=== PATIENT | male | born 1960 | race Caucasian/White ===

== ENCOUNTER 2016-12-20 11:01 | Emergency (ER) | payer BC, OTHER ==
[2016-12-20 11:06] VITALS: BMI 22.1
[2016-12-20] MEDS ORDERED: SODIUM CHLORIDE 1,000 ML IV STA (11:23)
[2016-12-20] MEDS ORDERED: ACETAMINOPHEN 1000 MG/100 ML VIAL (NON FORMULARY) IVPB ONE (11:26)
--- NOTE | 2016-12-20 11:27 | PDOC ---
History of Present Illness - General History Source: Patient Exam Limitations: No Limitations - History of Present Illness Initial Comments: 12/20/16 12:18 Patient is a 56 year old male with a significant past medical history of throat cancer (completed radiation in remission) who presents to the ED with chills, cough, sore throat, body aches, and fever since yesterday. Patient notes that he developed a cough and sore throat 2 days ago. He reports dry nonproductive cough, chills and feeling hot. Patient also reports intermittent stuffy nose and nausea. He states that he has been taking advil for the symptoms with mild releif. No recent travel or known sick contacts. Pt denies any cp, abd pain, diarrhea, dysuria. <Nkechi Pineda - Last Filed: 12/20/16 12:18> <Sanjay Vidal - Last Filed: 12/20/16 16:17> - General Chief Complaint: Respiratory Stated Complaint: COUGH, COLD, Tachycardia Time Seen by Provider: 12/20/16 11:23 Past History <Nkechi Pineda - Last Filed: 12/20/16 12:18> - Past Medical History Cancer: Yes (throat) - Surgical History Orthopedic Surgery: No (pigeon chest) - Psycho/Social/Smoking Cessation Hx Suicidal Ideation: No Smoking Status: No Smoking History: Former smoker Have you smoked in the past 12 months: No Number of Cigarettes Smoked Daily: 0 If you are a former smoker, when did you quit?: 2001 Information on smoking cessation initiated: No Hx Alcohol Use: No Drug/Substance Use Hx: No Substance Use Type: None Hx Substance Use Treatment: No <Sanjay Vidal - Last Filed: 12/20/16 16:17> - Past Medical History Allergies/Adverse Reactions: Allergies Allergy/AdvReac Type Severity Reaction Status Date / Time No Known Drug Allergies Allergy Verified 12/20/16 11:06 Home Medications: Ambulatory Orders Azithromycin [Zithromax -] 250 mg PO DAILY #6 tab 12/20/16 Review of Systems - Review of Systems Able to Perform ROS?: Yes Comments:: 12/20/16 12:19 CONSTITUTIONAL: Reported: fever, chills, diffuse body aches No reported: Diaphoresis, Generalized Weakness, Malaise, Loss of Appetite HEENT: Reported: nasal congestion, sore throat No reported: Rhinorrhea,Throat Swelling, Difficulty Swallowing, Mouth Swelling, Ear Pain, Eye Pain, Visual Changes CARDIOVASCULAR: No reported: Chest Pain, Syncope, Palpitations, Irregular Heart Rate, Lightheadedness, Peripheral Edema RESPIRATORY: Reported: cough No reported: Shortness of Breath, SOB with Exertion, Orthopnea, Wheezing, Stridor, Hemoptysis GASTROINTESTINAL: No reported: Abdominal pain, Abdominal Distension, Nausea, Vomiting, Diarrhea, Constipation, Melena, Hematochezia GENITOURINARY: No reported: Dysuria, Frequency, Urgency, Hesitancy, Flank Pain, Genital Pain MUSCULOSKELETAL: No reported: Myalgia, Arthralgia, Joint Swelling, Back pain, Neck Pain SKIN: No reported: Rash, Itching, Pallor HEMATOLOGIC/IMMUNOLOGIC: No reported: Easy Bleeding, Easy Bruising, Lymphadenopathy, Frequent infections ENDOCRINE: No reported: Unexplained Weight Gain, Unexplained Weight Loss, Heat Intolerance , Cold Intolerance NEUROLOGIC: No reported: Headache, Focal Weakness, Paresthesias, Vertigo, Lightheadedness, Unsteady Gait, Seizure, Mental Status Changes, Incontinence PSYCHIATRIC: No reported: Anxiety, Depression <Nkechi Pineda - Last Filed: 12/20/16 12:18> *Physical Exam - Vital Signs Last Vital Signs Temp Pulse Resp BP Pulse Ox 102.6 F H 143 H 19 135/95 95 12/20/16 11:04 12/20/16 11:04 12/20/16 11:04 12/20/16 11:04 12/20/16 11:04 - Physical Exam Comments: 12/20/16 12:19 GENERAL: The patient is awake, alert, and fully oriented, Nontoxic - in no acute distress. HEAD: Normocephalic, atraumatic. EYES: extraocular movements intact, sclera anicteric, conjunctiva clear. ENT: Normal voice, Moist mucous membranes. Nonerythematous, no exudates NECK: Normal range of motion, supple LUNGS: Breath sounds equal, clear to auscultation bilaterally. No wheezes, no rhonchi, no rales. HEART: +Tachycardic, without murmur, rub or gallop. ABDOMEN: Soft, nontender, normoactive bowel sounds. No guarding, no rebound.No CVA tenderness EXTREMITIES: Normal range of motion, no edema. No clubbing or cyanosis. No cords , erythema, or tenderness. NEUROLOGICAL: No facial assymetry, Normal speech, PSYCH: Normal mood, normal affect. SKIN: hot to the touch, Dry, normal turgor, <Nkechi Pineda - Last Filed: 12/20/16 12:18> - Vital Signs Last Vital Signs Temp Pulse Resp BP Pulse Ox 102.6 F H 143 H 19 135/95 95 12/20/16 11:04 12/20/16 11:04 12/20/16 11:04 12/20/16 11:04 12/20/16 11:04 <Sanjay Vidal - Last Filed: 12/20/16 16:17> Heart Score/ECG Review - ECG Impressions Comment:: 12/20/16 11:37 Twelve-lead EKG was performed and reviewed by me. There is normal sinus rhythm with a rate of 125 The axis is normal. The intervals are normal. There is normal R wave progression There are no ST or T wave abnormalities. Impression: sinus tachycardia <Sanjay Vidal - Last Filed: 12/20/16 16:17> ED Treatment Course - LABORATORY CBC & Chemistry Diagram: 12/20/16 11:30 12/20/16 11:30 - ADDITIONAL ORDERS Additional order review: 12/20/16 11:30 RBC 5.90 H MCV 79.6 L MCHC 32.3 RDW 15.6 MPV 8.3 Neutrophils % 83.6 H Lymphocytes % 5.0 L D Monocytes % 4.9 Eosinophils % 6.2 H Basophils % 0.3 <Nkechi Pineda - Last Filed: 12/20/16 12:18> - LABORATORY CBC & Chemistry Diagram: 12/20/16 11:30 12/20/16 11:30 - RADIOLOGY Radiology Studies Ordered: Category Date Time Status CHEST X-RAY PORTABLE* [RAD] Stat Radiology 12/20/16 11:23 Ordered <Sanjay Vidal - Last Filed: 12/20/16 16:17> Medical Decision Making - Medical Decision Making 12/20/16 11:35 56y M hx of throat CA (s/p radiation therapy 5 yrs ago, with resolution), presents with body aches, non productive cough, nasal congestion x 1 day. The pts vitals noted for fever/tachcyardia. exam otherwise unremarkable and pt is well appearing suspect influenza will ck xray to r/o pna, sepsis orderset obtained will give fluids, iv tylenol will reassess A portion of this note was documented by scribe services under my direction. I have reviewed the details of the note, within reason, and agree with the documentation with the following case summary and management plan written by me 12/20/16 13:48 labs reviewed noted for leukocytosis to 17 with left shift ua neg for UTI cxr negative for pna flu and strep negative suspect likely viral syndrome with congestion/cough/body aches glendy recommend supportive care at home. pts vitals still shows fever with tacycardia - improved will give him toradol for fever control 12/20/16 16:16 pts feels improved pts HR and fever resolved, states he feals great and wants to go home the pts BP is a bit lower than prior to arrival, but pt was able to ambulate around the ED without any sypmtoms icluding any dizziness. will dc the pt with pmd fu on thursday will give pt course of zithromax strict reutnr precautions were discussed I discussed the physical exam findings, ancillary test results and final diagnoses with the patient. I answered all of the patient's questions. The patient was satisfied with the care received and felt comfortable with the discharge plan and treatment plan. The patient will call their primary care physician within 24 hours to arrange follow-up and will return to the Emergency Department with any new, persistent or worsening symptoms. <Sanjay Vidal - Last Filed: 12/20/16 16:17> *DC/Admit/Observation/Transfer - Attestations Scribe Attestion: 12/20/16 11:40 Documentation prepared by ARAVIND Small, acting as medical insurance claims processor for Sanjay Vidal MD. <Nkechi Pineda - Last Filed: 12/20/16 12:18> - Discharge Dispostion Admit: No <Sanjay Vidal - Last Filed: 12/20/16 16:17> Diagnosis at time of Disposition: Bronchitis, acute - Discharge Dispostion Disposition: HOME Condition at time of disposition: Improved - Referrals Referrals: Sincere Sanchez MD [Primary Care Provider] - - Patient Instructions Printed Discharge Instructions: DI for Viral Upper Respiratory Infection -- Adult, DI for Acute Bronchitis Additional Instructions: Return to the emergency department immediately with ANY new, persistent or worsening symptoms including any shortness of breath, chest pain, dizziness, abominal pain, nausea/vomiting, or any other concerns. You MUST call and follow up with your doctor tomorrow for further evaluation of your symptoms. Results were discussed with you. Please make sure your doctor reviews the results of your emergency evaluation. If you had any xrays during your visit, it was read preliminarily by myself, a Radiologist will review it and if there are any additional findings we will call you. Print Language: NEPALI
[2016-12-20] MEDS ORDERED: ACETAMINOPHEN INJECTION 100 ML IVPB ONE (11:34)
[2016-12-20 11:36] LABS: BASOPHIL 0.3 % (0-2.0); EOSINOPHIL 6.2 % (0-4.5); MCH 25.7 pg (25.7-33.7); MCHC 32.3 g/dl (32.0-35.9); MEAN CELL VOLUME 79.6 fl (80-96); MEAN PLT VOLUME 8.3 fl (7.5-11.1); NEUTROPHILS 83.6 % (42.8-82.8); PLATELET COUNT 312 K/MM3 (134-434); RDW 15.6 % (11.9-15.9); WHITE BLOOD COUNT 17.3 K/mm3 (4.0-10.0)
[2016-12-20 11:48] LABS: INR 1.04 (0.82-1.09); PROTHROMBIN TIME (PATIENT) 11.5 SEC (9.98-11.88)
[2016-12-20 11:51] LABS: ACTIVATED PTT 30.4 SECONDS (26.9-34.4)
[2016-12-20 12:00] LABS: ALBUMIN 4.2 g/dl (3.4-5.0); ANION GAP 9 (8-16); BILIRUBIN,TOTAL 0.8 mg/dL (0.2-1.0); CO2 29 mmol/L (21-32); COCKROFT - GAULT 86.09; CREATININE 0.9 mg/dL (0.7-1.3); GLUCOSE,RANDOM 105 mg/dL (74-106); SGOT/AST 17 U/L (15-37); SGPT/ALT 20 U/L (12-78); TOT PROT 8.3 g/dl (6.4-8.2)
[2016-12-20 12:00] LABS: URINE APPEARANCE CLEAR; URINE BILIRUBIN NEGATIVE (NEGATIVE); URINE COLOR LTYELLOW; URINE GLUCOSE (UA) NEGATIVE (NEGATIVE); URINE KETONE NEGATIVE (NEGATIVE); URINE LEUK ESTERASE NEGATIVE (NEGATIVE); URINE NITRITE NEGATIVE (NEGATIVE); URINE PROTEIN NEGATIVE (NEGATIVE); URINE UROBILINOGEN NEGATIVE E.U./dl (0.2-1.0)
[2016-12-20 12:01] LABS: URINE BLOOD 1+ (NEGATIVE)
[2016-12-20 12:02] LABS: URINE MUCUS RARE; URINE RBC 1 /hpf (0-3)
[2016-12-20 12:02] LABS: VENOUS BLOOD GAS HCO3 29.6 meq/L (19-25); VENOUS PH 7.35 (7.32-7.42)
[2016-12-20 12:03] LABS: ALK PHOS 79 U/L (45-117); TROPONIN I < 0.02 ng/ml (0.00-0.05)
[2016-12-20] MEDS ORDERED: KETOROLAC TROMETHAMINE 30 MG/1 ML VIAL IVPUSH ONE (13:49)
[2016-12-20] MEDS ORDERED: SODIUM CHLORIDE 1,000 ML IV ONE (13:49)
[2016-12-20] MEDS ORDERED: KETOROLAC TROMETHAMINE 30 MG/1 ML VIAL ONE (13:58)
[2016-12-20 15:26] VITALS: BP 95/68; PULSE 91; TEMP 98
--- NOTE | 2016-12-21 12:32 | EKG ---
Test Reason : Blood Pressure : / mmHG Vent. Rate : 125 BPM Atrial Rate : 125 BPM P-R Int : 116 ms QRS Dur : 074 ms QT Int : 306 ms P-R-T Axes : 079 050 070 degrees QTc Int : 441 ms SINUS TACHYCARDIA NONSPECIFIC ST ABNORMALITY Confirmed by KIM GRALAND MD ([id number]) on 12/21/2016 12:32:34 PM Referred By: Confirmed By:KIM GARLAND MD
== END 2016-12-20 16:26 | disposition home or self-care (01) ==
LOC: JER 11:01
PROC: 3E033NZ Introduction of Analgesics, Hypnotics, Sedatives into Peripheral Vein, Percutaneous Approach (ICD-10-PCS; principal; 2016-12-20)
PROC: 3E0333Z Introduction of Anti-inflammatory into Peripheral Vein, Percutaneous Approach (ICD-10-PCS; 2016-12-20)
DX: J20.9 Acute bronchitis, unspecified (principal); Z85.819 Personal history of malignant neoplasm of unspecified site of lip, oral cavity, and pharynx
CPT/HCPCS: 36415; 71010-TC; 80053; 81003; 81015; 82550; 82803; 83605; 84484; 85025; 85610; 85730; 86850; 86900; 86901; 87040; 87070; 87086; 87430; 87804; 93005; 93010; 99285-25

== ENCOUNTER 2021-03-12 06:35 | Observation (INO) | payer BC, OTHER ==
[2021-03-12] MEDS ORDERED: ACETAMINOPHEN 325 MG TABLET (FP) PO ONE (07:35)
[2021-03-12] MEDS ORDERED: ACETAMINOPHEN 325 MG TABLET (FP) ONE (07:45)
[2021-03-12 08:06] LABS: BASO % 1.2 % (0-2.0); EOS % 6.2 % (0-4.5); HEMATOCRIT 45.7 % (35.4-49); HEMOGLOBIN 15.1 GM/dL (11.7-16.9); LYMPH % 11.5 % (8-40); MCH 26.4 pg (25.7-33.7); MCHC 33.1 g/dl (32.0-35.9); MEAN CELL VOLUME 79.8 fl (80-96); MONO % 6.6 % (3.8-10.2); NEUT % 74.5 % (42.8-82.8); PLATELET COUNT 328 10^3/uL (134-434); RBC 5.73 M/mm3 (4.00-5.60); RDW 15.5 % (11.9-15.9); WHITE BLOOD COUNT 7.8 K/mm3 (4.0-10.0)
[2021-03-12 08:24] LABS: ALBUMIN 4.1 g/dl (3.4-5.0); BLOOD UREA NITROGEN 12.8 mg/dL (7-18); CALCIUM 9.2 mg/dL (8.5-10.1)
[2021-03-12 08:28] LABS: CREATININE 0.9 mg/dL (0.55-1.3)
[2021-03-12 08:29] LABS: BILIRUBIN,TOTAL 0.6 mg/dL (0.2-1); TOT PROT 7.8 g/dl (6.4-8.2)
[2021-03-12] MEDS ORDERED: LACTATED RINGERS SOLUTION 1000 ML INFUS.BAG IV ONE (09:49)
[2021-03-12] MEDS ORDERED: morphine CARPU-JECT 4 MG/1 ML DISP.SYRIN IVPUSH ONE (09:49)
[2021-03-12] MEDS ORDERED: KETOROLAC TROMETHAMINE 15 MG/ML VIAL IVPUSH PRN (10:09)
[2021-03-12] MEDS ORDERED: MORPHINE SULFATE 2 MG/ML VIAL ONE (10:42)
[2021-03-12] MEDS ORDERED: oxyCODONE HCL 5 MG TABLET PO PRN ×2 (10:57)
[2021-03-12] MEDS ORDERED: ONDANSETRON 4 MG/2 ML VIAL IVPUSH PRN (11:00)
[2021-03-12] MEDS: LEVOTHYROXINE NA 88 MCG TABLET (FP) PO SCH (16:29)
[2021-03-12 19:28] VITALS: BMI 21.2
[2021-03-12] MEDS: LATANOPROST 0.005% OPHTH SOLN 2.5ML BOTTLE OU SCH (22:37)
[2021-03-13] MEDS: LEVOTHYROXINE NA 88 MCG TABLET (FP) PO SCH (06:11)
[2021-03-13 09:25] LABS: HEMATOCRIT 42.9 % (35.4-49); HEMOGLOBIN 14.4 GM/dL (11.7-16.9); MCH 26.6 pg (25.7-33.7); MCHC 33.5 g/dl (32.0-35.9); MEAN CELL VOLUME 79.4 fl (80-96); PLATELET COUNT 305 10^3/uL (134-434); RBC 5.41 M/mm3 (4.00-5.60); RDW 15.7 % (11.9-15.9); WHITE BLOOD COUNT 8.9 K/mm3 (4.0-10.0)
[2021-03-13] MEDS ORDERED: oxyCODONE HCL 5 MG TABLET PO PRN (10:28)
[2021-03-13 10:41] LABS: BLOOD UREA NITROGEN 13.8 mg/dL (7-18); CALCIUM 8.8 mg/dL (8.5-10.1); CREATININE 0.8 mg/dL (0.55-1.3)
[2021-03-13] MEDS: ENOXAPARIN NA (PORCINE) 40 MG/0.4 ML DISP.SYRIN SQ SCH (10:59)
[2021-03-13] MEDS ORDERED: DOCUSATE SODIUM 100 MG CAPSULE (FP) PO PRN (17:24)
[2021-03-13] MEDS: oxyCODONE HCL 5 MG TABLET PO PRN (21:13)
[2021-03-13] MEDS: LATANOPROST 0.005% OPHTH SOLN 2.5ML BOTTLE OU SCH (21:16)
[2021-03-14] MEDS: ACETAMINOPHEN 325 MG TABLET (FP) PO PRN ×2 (05:48→13:44)
[2021-03-14 05:56] VITALS: PULSE 80
[2021-03-14] MEDS: LEVOTHYROXINE NA 88 MCG TABLET (FP) PO SCH (06:06)
[2021-03-14 08:55] LABS: BASO % 0.7 % (0-2.0); EOS % 8.1 % (0-4.5); HEMATOCRIT 46.3 % (35.4-49); LYMPH % 10.4 % (8-40); MCH 26.1 pg (25.7-33.7); MCHC 32.3 g/dl (32.0-35.9); MEAN CELL VOLUME 80.7 fl (80-96); MEAN PLT VOLUME 8.6 fl (7.5-11.1); MONO % 7.4 % (3.8-10.2); NEUT % 73.4 % (42.8-82.8); PLATELET COUNT 336 10^3/uL (134-434); RBC 5.73 M/mm3 (4.00-5.60); RDW 15.8 % (11.9-15.9); WHITE BLOOD COUNT 8.4 K/mm3 (4.0-10.0)
[2021-03-14 09:23] LABS: ALBUMIN 3.8 g/dl (3.4-5.0); BLOOD UREA NITROGEN 14.1 mg/dL (7-18); CALCIUM 9.1 mg/dL (8.5-10.1)
[2021-03-14 09:24] LABS: MAGNESIUM 2.4 mg/dL (1.8-2.4)
[2021-03-14 09:27] LABS: CREATININE 0.8 mg/dL (0.55-1.3); PHOSPHOROUS 3.3 mg/dL (2.5-4.9)
[2021-03-14 09:28] LABS: BILIRUBIN,TOTAL 0.6 mg/dL (0.2-1); TOT PROT 7.4 g/dl (6.4-8.2)
[2021-03-14] MEDS: ENOXAPARIN NA (PORCINE) 40 MG/0.4 ML DISP.SYRIN SQ SCH (10:26)
[2021-03-14 11:06] VITALS: BP 124/78; TEMP 98
[2021-03-14] MEDS: oxyCODONE HCL 5 MG TABLET PO PRN (13:43)
== END 2021-03-14 16:00 | disposition home or self-care (01) ==
LOC: JER 06:35 → INTOOBSV 09:50 → JERBED 09:50 → J5S 15:48
PROVIDERS: ATTEND Internal Medicine
PROC: 3E0337Z Introduction of Electrolytic and Water Balance Substance into Peripheral Vein, Percutaneous Approach (ICD-10-PCS; principal; 2021-03-12)
PROC: 3E033NZ Introduction of Analgesics, Hypnotics, Sedatives into Peripheral Vein, Percutaneous Approach (ICD-10-PCS; 2021-03-12)
DX: S22.42XA Multiple fractures of ribs, left side, initial encounter for closed fracture (principal); Y92.89 Other specified places as the place of occurrence of the external cause; E03.9 Hypothyroidism, unspecified; D49.0 Neoplasm of unspecified behavior of digestive system; H40.9 Unspecified glaucoma; Z29.9 Encounter for prophylactic measures, unspecified; W18.39XA Other fall on same level, initial encounter; Y93.89 Activity, other specified; Z87.891 Personal history of nicotine dependence
CPT/HCPCS: 36415; 71045-TC-FY; 71260-TC; 74177-TC; 80048; 80053; 83735; 84100; 84443; 85025; 85027; 93005; 93010; 94010; 96360; 96374; 96375; 97116-GP; 97161-GP; 99285-25; C9803; G0378; Q9967; U0003; U0005